=== PATIENT | male | born 1960 | race Caucasian/White ===

== ENCOUNTER 2023-11-28 20:30 | Inpatient (IN) | payer MEDICARE, OTHER ==
[~2023-11-28] VITALS: Ht 172.7 cm; Wt 97.5 kg
[2023-11-28 21:35] LABS: BASOPHILS # (AUTO) 0.1 K/uL (0.0-0.2); BASOPHILS % (AUTO) 0.5 % (0.0-2.0); EOSINOPHILS # (AUTO) 0.2 K/uL (0.0-0.7); EOSINOPHILS % (AUTO) 2.2 % (0.0-6.0); HEMATOCRIT 44 % (39-51); HEMOGLOBIN 14.4 g/dL (13.5-17.5); LYMPHOCYTES # (AUTO) 1.9 K/uL (0.8-4.8); LYMPHOCYTES % (AUTO) 17.2 % (20.0-44.0); MEAN CORPUSCULAR HEMOGLOBIN 29 PG (26.0-33.0); MEAN CORPUSCULAR HGB CONC 33 g/dl (31.0-36.0); MEAN CORPUSCULAR VOLUME 89 fL (80-96); MONOCYTES # (AUTO) 0.6 K/uL (0.1-1.30); NEUTROPHILS # (AUTO) 8.1 K/uL (1.8-8.9); NEUTROPHILS % (AUTO) 74.1 % (43.0-81.0); PLATELET COUNT (AUTO) 273 K/uL (150-450); RED BLOOD CELL COUNT(AUTO) 4.98 MIL/uL (4.5-6.0); RED CELL DISTRIBUTION WIDTH 14.6 % (11.5-15.0); WHITE BLOOD COUNT (AUTO) 10.9 K/uL (4.3-11.0)
[2023-11-28 21:55] LABS: ALANINE AMINOTRANSFERASE 53 U/L (12-78); ALBUMIN 4.3 g/dL (3.4-5.0); ALCOHOL, BLOOD < 3 mg/dL (0-10); ALKALINE PHOSPHATASE 83 U/L (46-116); ASPARTATE AMINOTRANSFERASE 29 U/L (15-37); BILIRUBIN,DIRECT 0.1 mg/dL (0.0-0.2); BILIRUBIN,TOTAL 0.5 mg/dL (0.2-1.0); CALCIUM, SERUM 9.1 mg/dL (8.5-10.1); CARBON DIOXIDE 26 mmol/L (21-32); CHLORIDE 102 mmol/L (98-107); GLUCOSE 111 mg/dL (74-106); POTASSIUM 3.5 mmol/L (3.5-5.1); SODIUM SERUM 139 mmol/L (136-145); TOTAL PROTEIN, SERUM 8.1 g/dL (6.4-8.2); UREA NITROGEN, BLOOD 14 mg/dL (7-18)
[2023-11-28 21:57] LABS: SALICYLATE 0.7 mg/dL (2.8-20.0)
[2023-11-28 21:58] LABS: ACETAMINOPHEN 0 ug/ml (10-30)
[2023-11-28 23:04] LABS: APPEARANCE,URINE CLEAR (CLEAR); BILIRUBIN,URINE 1+ (NEGATIVE); BLOOD, URINE NEGATIVE Ery/uL (NEGATIVE); COLOR,URINE YELLOW (YELLOW); KETONES,URINE TRACE mg/dL (NEGATIVE); LEUKOCYTE ESTERASE ,URINE NEGATIVE (NEGATIVE); NITRITE, URINE NEGATIVE (NEGATIVE); PH,URINE 5.5 (5.0-8.0); PROTEIN,URINE 2+ mg/dl (NEGATIVE); UGLUCOSE NEGATIVE (NEGATIVE); UROBILINOGEN,URINE 0.2 EU/dL (0.2)
[2023-11-28 23:05] LABS: ADD URINE CULTURE NO; BACTERIA,URINE Rare /HPF (None Seen); SQUAMOUS EPITHELIAL CELL,UR Few /HPF (None Seen); WBC,URINE 0-2 /HPF (0-3)
[2023-11-28 23:15] LABS: AMPHETAMINE, URINE NEGATIVE (NEGATIVE); BARBITURATE, URINE NEGATIVE (NEGATIVE); BENZODIAZEPINE, URINE NEGATIVE (NEGATIVE); CANNABINOID, URINE NEGATIVE (NEGATIVE); COCCAINE, URINE NEGATIVE (NEGATIVE); OPIATE, URINE NEGATIVE (NEGATIVE); PHENCYCLIDINE SCREEN,URINE NEGATIVE (NEGATIVE)
[2023-11-28] MEDS ORDERED: ATOR80TA PO (23:17)
[2023-11-28] MEDS ORDERED: TEMA15CA PO (23:17)
[2023-11-28] MEDS ORDERED: TRAZ150T75 PO (23:17)
[2023-11-28] MEDS ORDERED: ACET325C7 PO ×2 (23:17)
[2023-11-28] MEDS ORDERED: FINA5TAB11 PO (23:17)
[2023-11-28] MEDS ORDERED: OLAN15TA3 PO (23:17)
[2023-11-28] MEDS ORDERED: MAGN24002 PO ×2 (23:17)
[2023-11-28] MEDS ORDERED: AMLO-213 PO (23:17)
[2023-11-28] MEDS ORDERED: OXYB5TAB16 PO (23:17)
[2023-11-28] MEDS ORDERED: OMEP20CA15 PO (23:17)
[2023-11-28] MEDS ORDERED: TAMS-12 PO (23:17)
[2023-11-28] MEDS ORDERED: MIRT-90 PO (23:17)
[2023-11-28] MEDS ORDERED: NAPR-1009 PO (23:17)
[2023-11-29] MEDS ORDERED: ACETAMINOPHEN 325 MG TABLET PO PRN (01:00)
[2023-11-29] MEDS ORDERED: MAGNESIUM HYDROXIDE 30 ML UDC PO PRN ×2 (01:00→12:00)
[2023-11-29] MEDS ORDERED: MAG HYDROX/AL HYDROX/SIMETH 30 ML UDC PO PRN (01:00)
[2023-11-29] MEDS ORDERED: QUETIAPINE FUMARATE 25 MG TABLET PO PRN (01:00)
[2023-11-29] MEDS ORDERED: ZOLPIDEM TARTRATE 5 MG TABLET PO PRN (01:00)
[2023-11-29] MEDS ORDERED: OLANZAPINE 2.5 MG TABLET PO PRN (01:30)
[2023-11-29 01:38] VITALS: BP 133/76; TEMP 98; O2SAT 98
[2023-11-29] MEDS: BLOOD SUGAR DIAGNOSTIC 1 EACH STRIP IN ONE (01:53)
[2023-11-29 08:00] VITALS: BP 124/80; TEMP 97.7; O2SAT 94
[2023-11-29] MEDS ORDERED: MAG30ORA14 PO (08:51)
[2023-11-29] MEDS ORDERED: ACET325T53 PO (08:51)
[2023-11-29] MEDS ORDERED: MAGN400O6 PO (08:51)
[2023-11-29] MEDS ORDERED: MIRT-73 PO (08:51)
[2023-11-29] MEDS ORDERED: TRAZ150T75 PO (08:51)
[2023-11-29] MEDS ORDERED: OLAN15TA3 PO (08:51)
[2023-11-29] MEDS ORDERED: TEMA15CA PO (08:51)
[2023-11-29] MEDS ORDERED: BETH50TA2 PO (08:51)
[2023-11-29] MEDS ORDERED: MIRT-90 PO (08:53)
[2023-11-29] MEDS: AMLODIPINE BESYLATE 10 MG TABLET PO SCH (12:00)
[2023-11-29] MEDS: LITHIUM CARBONATE 150 MG CAPSULE PO SCH (15:16)
[2023-11-29 16:02] VITALS: BP 135/96; TEMP 98; O2SAT 98
[2023-11-29] MEDS ORDERED: BETHANECHOL CHLORIDE 50 MG TABLET PO SCH (17:00)
[2023-11-29 17:58] VITALS: BP 136/65; TEMP 97.6; O2SAT 98
[2023-11-29] MEDS: NAPROXEN 500 MG TABLET PO SCH (18:42)
[2023-11-29] MEDS: BETHANECHOL CHLORIDE (25 MG) 25 MG TABLET PO SCH (18:56)
[2023-11-29 21:45] VITALS: BP 123/77; TEMP 98.1; O2SAT 98
[2023-11-29] MEDS: OLANZAPINE 10 MG TABLET PO SCH (22:19)
[2023-11-29] MEDS: TAMSULOSIN 0.4 MG CAP.SR.24H PO SCH (22:20)
[2023-11-29] MEDS: TRAZODONE 50 MG TABLET PO SCH (22:20)
[2023-11-29] MEDS: ATORVASTATIN 40 MG TABLET PO SCH (22:20)
[2023-11-29] MEDS: TEMAZEPAM 7.5 MG CAPSULE PO PRN (23:14)
[2023-11-30 07:33] LABS: BASOPHILS % (AUTO) 0.3 % (0.0-2.0); EOSINOPHILS # (AUTO) 0.4 K/uL (0.0-0.7); EOSINOPHILS % (AUTO) 4.2 % (0.0-6.0); HEMATOCRIT 39 % (39-51); HEMOGLOBIN 12.9 g/dL (13.5-17.5); LYMPHOCYTES # (AUTO) 1.8 K/uL (0.8-4.8); LYMPHOCYTES % (AUTO) 20.5 % (20.0-44.0); MEAN CORPUSCULAR HEMOGLOBIN 30 PG (26.0-33.0); MEAN CORPUSCULAR HGB CONC 33 g/dl (31.0-36.0); MEAN CORPUSCULAR VOLUME 90 fL (80-96); MONOCYTES # (AUTO) 0.7 K/uL (0.1-1.30); MONOCYTES % (AUTO) 8.3 % (2.0-12.0); NEUTROPHILS # (AUTO) 5.8 K/uL (1.8-8.9); NEUTROPHILS % (AUTO) 66.7 % (43.0-81.0); PLATELET COUNT (AUTO) 232 K/uL (150-450); RED BLOOD CELL COUNT(AUTO) 4.34 MIL/uL (4.5-6.0); RED CELL DISTRIBUTION WIDTH 14.7 % (11.5-15.0); WHITE BLOOD COUNT (AUTO) 8.7 K/uL (4.3-11.0)
[2023-11-30 08:00] VITALS: BP 134/83; TEMP 97.9; O2SAT 95
[2023-11-30] MEDS: OXYBUTYNIN CHLORIDE 5 MG TABLET PO SCH (08:42)
[2023-11-30] MEDS: OLANZAPINE 5 MG TABLET PO SCH (08:42)
[2023-11-30] MEDS: PANTOPRAZOLE 40 MG TABLET.DR PO SCH (08:43)
[2023-11-30] MEDS: FINASTERIDE (5 MG) 5 MG TABLET PO SCH (08:43)
[2023-11-30 09:17] LABS: POTASSIUM 4.6 mmol/L (3.5-5.1)
[2023-11-30 09:18] LABS: CALCIUM, SERUM 8.4 mg/dL (8.5-10.1); CREATININE 0.9 mg/dL (0.6-1.3)
[2023-11-30] MEDS: LITHIUM CARBONATE 150 MG CAPSULE PO ONE (13:32)
[2023-11-30] MEDS: OLANZAPINE 5 MG TABLET PO ONE (13:32)
[2023-11-30 16:00] VITALS: BP 129/80; TEMP 98.6; O2SAT 95
[2023-11-30 21:18] VITALS: BP 126/74; TEMP 98.4; O2SAT 96
[2023-12-01 08:00] VITALS: BP 127/78; TEMP 97.9; O2SAT 98
[2023-12-01 16:00] VITALS: BP 127/87; TEMP 98.1; O2SAT 98
[2023-12-01 20:58] VITALS: BP 136/82; TEMP 97.5; O2SAT 98
[2023-12-01] MEDS: TRAZODONE 50 MG TABLET PO SCH (21:30)
[2023-12-02] MEDS: ACETAMINOPHEN 325 MG TABLET PO PRN (00:35)
[2023-12-02 08:00] VITALS: BP 128/76; TEMP 98.1; O2SAT 97
[2023-12-02 16:00] VITALS: BP 135/90; TEMP 97.9; O2SAT 99
[2023-12-02 20:18] VITALS: BP 132/65; TEMP 98.2; O2SAT 96
[2023-12-03 08:00] VITALS: BP 135/77; TEMP 97.9; O2SAT 98
[2023-12-03] MEDS: OLANZAPINE 2.5 MG TABLET PO SCH (08:41)
[2023-12-03 16:00] VITALS: BP 147/90; TEMP 98.7; O2SAT 97
[2023-12-03 20:49] VITALS: BP 151/85; TEMP 98.6; O2SAT 97
[2023-12-04 08:00] VITALS: BP 131/85; TEMP 98; O2SAT 96
[2023-12-04 20:00] VITALS: BP 135/81; TEMP 97.8; O2SAT 98
[2023-12-05 07:22] LABS: CALCIUM, SERUM 8.3 mg/dL (8.5-10.1); CREATININE 0.9 mg/dL (0.6-1.3); POTASSIUM 3.8 mmol/L (3.5-5.1)
[2023-12-05 08:00] VITALS: BP 159/90; TEMP 97.4; O2SAT 97
[2023-12-05] MEDS: OLANZAPINE 10 MG TABLET PO SCH ×2 (08:15→21:18)
[2023-12-05 16:00] VITALS: BP 159/90; TEMP 98; O2SAT 99
[2023-12-05 20:00] VITALS: BP 129/66; TEMP 98.2; O2SAT 95
[2023-12-06 08:00] VITALS: BP 136/85; TEMP 98.2; O2SAT 96
[2023-12-06 15:59] VITALS: BP 142/76; TEMP 98; O2SAT 96
[2023-12-06] MEDS: FLUTICASONE PROPIONATE 16 GM BOTTLE NS SCH (16:34)
[2023-12-06] MEDS: TRAZODONE 50 MG TABLET PO SCH (21:34)
[2023-12-06 21:50] VITALS: BP 139/74; TEMP 98.2; O2SAT 98
[2023-12-07 10:47] VITALS: BP 151/92; TEMP 98.3; O2SAT 92
[2023-12-07 20:00] VITALS: BP 133/74; TEMP 98.1; O2SAT 95
[2023-12-08] MEDS: OLANZAPINE 10 MG TABLET PO SCH (08:33)
[2023-12-08 20:52] VITALS: BP 117/63; TEMP 97.7; O2SAT 95
[2023-12-08 21:00] LABS: BASOPHILS % (AUTO) 0.3 % (0.0-2.0); EOSINOPHILS # (AUTO) 0.4 K/uL (0.0-0.7); EOSINOPHILS % (AUTO) 3.8 % (0.0-6.0); HEMATOCRIT 36 % (39-51); LYMPHOCYTES # (AUTO) 1.5 K/uL (0.8-4.8); LYMPHOCYTES % (AUTO) 14.3 % (20.0-44.0); MEAN CORPUSCULAR HEMOGLOBIN 30 PG (26.0-33.0); MEAN CORPUSCULAR HGB CONC 33 g/dl (31.0-36.0); MEAN CORPUSCULAR VOLUME 88 fL (80-96); MONOCYTES # (AUTO) 0.9 K/uL (0.1-1.30); MONOCYTES % (AUTO) 8.7 % (2.0-12.0); NEUTROPHILS # (AUTO) 7.8 K/uL (1.8-8.9); NEUTROPHILS % (AUTO) 72.9 % (43.0-81.0); PLATELET COUNT (AUTO) 240 K/uL (150-450); RED BLOOD CELL COUNT(AUTO) 4.06 MIL/uL (4.5-6.0); RED CELL DISTRIBUTION WIDTH 14.3 % (11.5-15.0); WHITE BLOOD COUNT (AUTO) 10.7 K/uL (4.3-11.0)
[2023-12-08 21:11] LABS: ERYTHROCYTE SEDIMENTATION RATE 69 MM/HR (0-20)
[2023-12-08 21:53] LABS: CALCIUM, SERUM 8.7 mg/dL (8.5-10.1); CREATININE 1.2 mg/dL (0.6-1.3); POTASSIUM 3.7 mmol/L (3.5-5.1)
[2023-12-08 21:57] LABS: URIC ACID 4.7 mg/dL (2.6-7.2)
[2023-12-08] MEDS: CEPHALEXIN MONOHYDRATE 500 MG CAPSULE PO SCH (23:51)
[2023-12-09 08:00] VITALS: BP 148/75; TEMP 97.9; O2SAT 95
[2023-12-09 15:30] VITALS: BP 114/63; TEMP 98.1; O2SAT 99
[2023-12-09 21:49] VITALS: BP 113/63; TEMP 98; O2SAT 96
[2023-12-10 08:00] VITALS: BP 156/94; TEMP 98.7; O2SAT 98
[2023-12-10 12:43] LABS: CALCIUM, SERUM 8.9 mg/dL (8.5-10.1); POTASSIUM 4.1 mmol/L (3.5-5.1)
[2023-12-10 13:24] LABS: CREATININE 0.8 mg/dL (0.6-1.3)
[2023-12-10 16:00] VITALS: BP 124/78; TEMP 98.6; O2SAT 97
[2023-12-10] MEDS: MUPIROCIN OINT 2% 22 GM TUBE TP SCH (17:07)
[2023-12-10 20:00] VITALS: BP 124/66; TEMP 98; O2SAT 97
[2023-12-10 20:36] VITALS: BP 124/66; TEMP 98; O2SAT 97
[2023-12-11 08:00] VITALS: BP 164/96; TEMP 98; O2SAT 95
[2023-12-11] MEDS: LITHIUM CARBONATE 150 MG CAPSULE PO SCH (09:00)
[2023-12-11 20:00] VITALS: BP 121/95; TEMP 98.1; O2SAT 95
[2023-12-11] MEDS: OLANZAPINE 10 MG TABLET PO SCH (22:06)
[2023-12-12 08:00] VITALS: BP 144/81; TEMP 98.1; O2SAT 95
[2023-12-12 16:00] VITALS: BP 117/67; TEMP 98; O2SAT 97
[2023-12-12 20:00] VITALS: BP 124/68; TEMP 97.9; O2SAT 96
[2023-12-13 08:00] VITALS: BP 174/90; TEMP 97.6; O2SAT 98
[2023-12-13 13:26] LABS: BASOPHILS % (AUTO) 0.3 % (0.0-2.0); EOSINOPHILS # (AUTO) 0.4 K/uL (0.0-0.7); EOSINOPHILS % (AUTO) 3.9 % (0.0-6.0); HEMATOCRIT 40 % (39-51); HEMOGLOBIN 13.2 g/dL (13.5-17.5); LYMPHOCYTES # (AUTO) 1.9 K/uL (0.8-4.8); LYMPHOCYTES % (AUTO) 20.8 % (20.0-44.0); MEAN CORPUSCULAR HEMOGLOBIN 29 PG (26.0-33.0); MEAN CORPUSCULAR HGB CONC 33 g/dl (31.0-36.0); MEAN CORPUSCULAR VOLUME 88 fL (80-96); MONOCYTES # (AUTO) 0.6 K/uL (0.1-1.30); MONOCYTES % (AUTO) 6.8 % (2.0-12.0); NEUTROPHILS # (AUTO) 6.4 K/uL (1.8-8.9); NEUTROPHILS % (AUTO) 68.2 % (43.0-81.0); PLATELET COUNT (AUTO) 333 K/uL (150-450); RED BLOOD CELL COUNT(AUTO) 4.51 MIL/uL (4.5-6.0); RED CELL DISTRIBUTION WIDTH 13.8 % (11.5-15.0); WHITE BLOOD COUNT (AUTO) 9.4 K/uL (4.3-11.0)
[2023-12-13 14:31] LABS: ERYTHROCYTE SEDIMENTATION RATE 98 MM/HR (0-20)
[2023-12-14 08:00] VITALS: BP 119/63; TEMP 98; O2SAT 100
[2023-12-14 16:00] VITALS: BP 117/69; TEMP 97.6; O2SAT 100
[2023-12-14 20:55] LABS: HIV-1 p24 ANTIGEN NON REACTIVE (NONREACTIVE); HIV-1/2 ANTIBODY NON REACTIVE (NONREACTIVE)
[2023-12-14] MEDS: TRAZODONE 50 MG TABLET PO SCH (21:16)
[2023-12-14 22:24] VITALS: BP 122/65; TEMP 97.6; O2SAT 96
[2023-12-15 08:00] VITALS: BP 160/80; TEMP 98.1; O2SAT 98
[2023-12-15] MEDS: DIVALPROEX SODIUM 125 MG TABLET.DR PO SCH (14:39)
[2023-12-15 16:00] VITALS: BP 150/91; TEMP 97.9; O2SAT 98
[2023-12-15 20:36] VITALS: BP 107/63; TEMP 98.9; O2SAT 98
[2023-12-16 03:07] LABS: HBSAG SCREEN Negative (Negative); HEPATITIS A AB, IgM Negative (Negative); HEPATITIS B CORE AB, IgM Negative (Negative)
[2023-12-16 08:00] VITALS: BP 149/76; TEMP 97.9; O2SAT 94
[2023-12-16] MEDS: OLANZAPINE 10 MG TABLET PO SCH (09:13)
[2023-12-16] MEDS: DIVALPROEX SODIUM 125 MG TABLET.DR PO SCH (14:17)
[2023-12-16 16:00] VITALS: BP 125/63; TEMP 97.8; O2SAT 97
[2023-12-16 20:41] VITALS: BP 131/85; TEMP 97.5; O2SAT 95
[2023-12-17 08:00] VITALS: BP 121/74; TEMP 98.7; O2SAT 97
[2023-12-17 16:00] VITALS: BP 138/73; TEMP 98.1; O2SAT 97
[2023-12-17 20:24] VITALS: BP 120/65; TEMP 98.5; O2SAT 96
[2023-12-18 08:00] VITALS: BP 131/92; TEMP 97.8; O2SAT 97
[2023-12-18 16:00] VITALS: BP 142/75; TEMP 98; O2SAT 98
[2023-12-18 20:00] VITALS: BP 124/66; TEMP 98.1; O2SAT 96
[2023-12-19 07:52] LABS: BASOPHILS % (AUTO) 0.3 % (0.0-2.0); EOSINOPHILS # (AUTO) 0.4 K/uL (0.0-0.7); EOSINOPHILS % (AUTO) 5.2 % (0.0-6.0); HEMATOCRIT 39 % (39-51); HEMOGLOBIN 12.9 g/dL (13.5-17.5); LYMPHOCYTES # (AUTO) 2.1 K/uL (0.8-4.8); LYMPHOCYTES % (AUTO) 24.4 % (20.0-44.0); MEAN CORPUSCULAR HEMOGLOBIN 29 PG (26.0-33.0); MEAN CORPUSCULAR HGB CONC 33 g/dl (31.0-36.0); MEAN CORPUSCULAR VOLUME 88 fL (80-96); MONOCYTES # (AUTO) 0.7 K/uL (0.1-1.30); NEUTROPHILS # (AUTO) 5.2 K/uL (1.8-8.9); NEUTROPHILS % (AUTO) 62.1 % (43.0-81.0); PLATELET COUNT (AUTO) 299 K/uL (150-450); RED BLOOD CELL COUNT(AUTO) 4.44 MIL/uL (4.5-6.0); RED CELL DISTRIBUTION WIDTH 14.3 % (11.5-15.0); WHITE BLOOD COUNT (AUTO) 8.4 K/uL (4.3-11.0)
[2023-12-19 08:00] VITALS: BP 130/73; TEMP 98; O2SAT 96
[2023-12-19 08:01] LABS: ERYTHROCYTE SEDIMENTATION RATE 50 MM/HR (0-20)
[2023-12-19 08:02] LABS: ALBUMIN 3.1 g/dL (3.4-5.0); BILIRUBIN,TOTAL 0.3 mg/dL (0.2-1.0); CALCIUM, SERUM 8.2 mg/dL (8.5-10.1); CREATININE 0.9 mg/dL (0.6-1.3); POTASSIUM 3.9 mmol/L (3.5-5.1); TOTAL PROTEIN, SERUM 6.8 g/dL (6.4-8.2)
[2023-12-19] MEDS: DIVALPROEX SODIUM 500 MG TABLET.DR PO SCH (14:36)
[2023-12-19 16:00] VITALS: BP 131/61; TEMP 98.1; O2SAT 98
[2023-12-19 20:00] VITALS: BP 126/71; TEMP 98.1; O2SAT 98
[2023-12-20 08:00] VITALS: BP 124/81; TEMP 98.2; O2SAT 98
[2023-12-20 09:00] VITALS: BP 124/81
== END 2023-12-20 13:25 | DRG 885 ==
LOC: ER 20:48 → GPS 23:33
PROVIDERS: ADMIT Psychiatry & Neurology Psychiatry; ATTEND Nurse Practitioner Acute Care
DX: F25.9 Schizoaffective disorder, unspecified (principal); M86.272 Subacute osteomyelitis, left ankle and foot; R45.851 Suicidal ideations; F29 Unspecified psychosis not due to a substance or known physiological condition; N32.81 Overactive bladder; Z20.822 Contact with and (suspected) exposure to COVID-19; E78.5 Hyperlipidemia, unspecified; I10 Essential (primary) hypertension; N40.0 Benign prostatic hyperplasia without lower urinary tract symptoms; Z73.6 Limitation of activities due to disability; F39 Unspecified mood [affective] disorder; R53.1 Weakness; F32.9 Major depressive disorder, single episode, unspecified; L03.032 Cellulitis of left toe; Z79.899 Other long term (current) drug therapy; Z87.891 Personal history of nicotine dependence; G20.A1 Parkinson's disease without dyskinesia, without mention of fluctuations; F19.21 Other psychoactive substance dependence, in remission
CPT/HCPCS: 36415; 73660-TC; 80048-TC; 80053-TC; 80061-TC; 80076-TC; 80164-TC; 80178-TC; 81001; 84550-TC; 85025-TC; 85652-TC; 86140-TC; 87081-TC; 87806; 97110-TC; 97116-TC; G0480